=== PATIENT | female | born 1985 | race Caucasian/White ===

== ENCOUNTER 2020-09-22 15:09 | Emergency (ER) | payer OTHER ==
[2020-09-22 15:35] VITALS: BP 108/79; PULSE 98; TEMP 98.7; BMI 25.0
== END 2020-09-22 17:57 | disposition home or self-care (01) ==
LOC: JER 15:09
DX: U07.1 COVID-19 (principal)
CPT/HCPCS: 71046-TC-FY; 84703; 99284-25